=== PATIENT | male | born 1970 | race African-American/Black ===

== ENCOUNTER 2020-07-28 11:31 | Emergency (ER) | payer OTHER ==
--- NOTE | 2020-07-28 12:12 | ER Document Report ---
ED Medical Screen (RME) - General Stated Complaint: CHEST PAIN Time Seen by Provider: 07/28/20 12:06 Primary Care Provider: MELVI PATEL PA [Primary Care Provider] - Follow up as needed Notes: HPI: 50-year-old male presenting with 1 month of a soreness in the left chest with no shortness of breath. States the soreness became more intense today so he called his primary care provider who told him to come to the emergency department to have it evaluated. Reports no primary history of heart issues or hypertension. PHYSICAL EXAMINATION: Lung sounds are clear to auscultation regular rate and rhythm on EKG I have greeted and performed a rapid initial assessment of this patient. A comprehensive ED assessment and evaluation of the patient, analysis of test results and completion of medical decision making process will be conducted by an additional ED providers. Please note that clinical decision making for this patient was made during the 2019 pandemic of novel coronavirus which caused a significant strain on the healthcare system including at this particular facility. Criteria for admission discharge and level of care decisions as well as treatment decisions have necessarily changed Physical Exam - Vital signs Vitals: Temp Pulse Resp BP Pulse Ox 98.2 F 62 16 156/107 H 99 07/28/20 11:44 07/28/20 11:44 07/28/20 11:44 07/28/20 11:44 07/28/20 11:44 Course - Vital Signs Vital signs: Temp Pulse Resp BP Pulse Ox 98.2 F 62 16 156/107 H 99 07/28/20 11:44 07/28/20 11:44 07/28/20 11:44 07/28/20 11:44 07/28/20 11:44 Doctor's Discharge - Discharge Referrals: MELVI PATEL PA [Primary Care Provider] - Follow up as needed
--- NOTE | 2020-07-28 12:36 | RADIOLOGY REPORT (SQ) ---
EXAM DESCRIPTION: CHEST SINGLE VIEW IMAGES COMPLETED DATE/TIME: 07/28/2020 12:27 pm REASON FOR STUDY: chest pain COMPARISON: 07/21/2010 EXAM PARAMETERS: NUMBER OF VIEWS: One view. TECHNIQUE: Single frontal radiographic view of the chest acquired. RADIATION DOSE: NA LIMITATIONS: None. FINDINGS: LUNGS AND PLEURA: No opacities, masses or pneumothorax. No pleural effusion. MEDIASTINUM AND HILAR STRUCTURES: No masses. Contour normal. HEART AND VASCULAR STRUCTURES: Heart normal in size. Normal vasculature. BONES: No acute findings. HARDWARE: None in the chest. OTHER: No other significant finding. IMPRESSION: NO ACUTE RADIOGRAPHIC FINDING IN THE CHEST. TECHNICAL DOCUMENTATION: JOB ID: [id number] 2010 [email or web address]- All Rights Reserved Reading location - IP/workstation name: [email or web address]
[2020-07-28 12:52] LABS: ABSOLUTE EOSINOPHILS # (AUTO) 0.2 10^3/uL (0.0-0.6); ABSOLUTE MONOCYTES (AUTO) 0.7 10^3/uL (0.1-1.4); ABSOLUTE NEUT (AUTO) 3.3 10^3/uL (1.7-8.2); BASOPHILS % (AUTO) 0.8 % (0-2); EOSINOPHILS % (AUTO) 2.5 % (0-6); HEMATOCRIT 44.6 % (37.9-51.0); HEMOGLOBIN 14.7 g/dL (13.5-17.0); LYMPHOCYTES % (AUTO) 32.5 % (13-45); MEAN CORPUSCULAR HEMOGLOBIN 27.3 pg (27.0-33.4); MEAN CORPUSCULAR HGB CONC 32.9 g/dL (32.0-36.0); MEAN CORPUSCULAR VOLUME 83 fl (80-97); MONOCYTES % (AUTO) 11.1 % (3-13); PLATELET COUNT 227 10^3/uL (150-450); RED BLOOD COUNT 5.37 10^6/uL (4.35-5.55); RED CELL DISTRIBUTION WIDTH 13.9 % (11.5-14.0); SEGMENTED NEUTROPHILS % (AUTO) 53.1 % (42-78); TOTAL CELLS COUNTED % (AUTO) 100 %; WHITE BLOOD COUNT 6.1 10^3/uL (4.0-10.5)
[2020-07-28 13:10] LABS: ALBUMIN 4.1 g/dL (3.5-5.0); ALKALINE PHOSPHATASE 99 U/L (38-126); ASPARTATE AMINO TRANSFERASE 22 U/L (17-59); BILIRUBIN,DIRECT 0.1 mg/dL (0.0-0.4); BILIRUBIN,TOTAL 0.4 mg/dL (0.2-1.3); BLOOD UREA NITROGEN 14 mg/dL (7-20); CALCIUM 9.9 mg/dL (8.4-10.2); GLUCOSE 87 mg/dL (75-110); POTASSIUM 4.7 mmol/L (3.6-5.0); TOTAL PROTEIN 7.5 g/dL (6.3-8.2)
[2020-07-28 13:16] LABS: CARBON DIOXIDE 31 mmol/L (22-30); CHLORIDE 104 mmol/L (98-107)
[2020-07-28 13:19] LABS: ANION GAP 3 (5-19)
--- NOTE | 2020-07-28 14:54 | ER Document Report ---
ED Cardiac - General Chief Complaint: Chest Pain Stated Complaint: CHEST PAIN Time Seen by Provider: 07/28/20 12:06 Primary Care Provider: MELVI PATEL PA [PHYSICIAN INCIDENT RESPONSE MANAGER] - Follow up as needed Mode of Arrival: Ambulatory Information source: Patient - [facility] Notes: Patient presents with chest pain. He states he had this chest pain for several months. He states it occurs almost every day. He states it is a "soreness". Is in the center of his chest. It is worse with movement and better with rest. He denies any associated symptoms. Specifically he denies shortness of breath, nausea, or sweating. He states he is a smoker but has no other known medical problems. He also denies any previous major surgeries. He denies any previous cardiac evaluation. This pain when it does occur last for a few seconds at a time and is mild. - Related Data Allergies/Adverse Reactions: No Known Allergies Allergy (Unverified 07/28/20 14:08) Past Medical History - General Information source: Patient - Social History Smoking Status: Never Smoker Chew tobacco use (# tins/day): No Frequency of alcohol use: None Drug Abuse: None Family History: Reviewed & Not Pertinent Patient has homicidal ideation: No Review of Systems - Review of Systems Constitutional: denies: Chills, Fever Cardiovascular: Chest pain. denies: Palpitations Respiratory: denies: Cough, Short of breath -: Yes All other systems reviewed and negative Physical Exam - Vital signs Vitals: Temp Pulse Resp BP Pulse Ox 98.2 F 62 16 156/107 H 99 07/28/20 11:44 07/28/20 11:44 07/28/20 11:44 07/28/20 11:44 07/28/20 11:44 Interpretation: Hypertensive - General General appearance: Appears well, Alert - HEENT Head: Normocephalic, Atraumatic Eyes: Normal Pupils: PERRL - Respiratory Respiratory status: No respiratory distress Chest status: Nontender Breath sounds: Normal Chest palpation: Normal - Cardiovascular Rhythm: Regular Heart sounds: Normal auscultation Murmur: No - Abdominal Inspection: Normal Distension: No distension Bowel sounds: Normal Tenderness: Nontender Organomegaly: No organomegaly - Back Back: Normal, Nontender - Extremities General upper extremity: Normal inspection, Nontender, Normal color, Normal ROM, Normal temperature General lower extremity: Normal inspection, Nontender, Normal color, Normal ROM, Normal temperature, Normal weight bearing. No: Braulio's sign - Neurological Neuro grossly intact: Yes Cognition: Normal Orientation: AAOx4 Jesús Coma Scale Eye Opening: Spontaneous [place] Coma Scale Verbal: Oriented [place] Coma Scale Motor: Obeys Commands Jesús Coma Scale Total: 15 Speech: Normal Motor strength normal: LUE, RUE, LLE, RLE Sensory: Normal - Psychological Associated symptoms: Normal affect, Normal mood - Skin Skin Temperature: Warm Skin Moisture: Dry Skin Color: Normal Course - Re-evaluation Re-evalutation: 07/28/20 14:52 Patient presents with very atypical chest pain. Is been going on for several months and occurs almost every day. Is not associate with any activity. He has no associated symptoms. He has a normal EKG. He has unremarkable laboratories. He has had also has an unremarkable exam. He does have an elevated blood pressure for which I will start him on amlodipine. He does have a doctor to follow-up with and states he will call and discuss an outpatient stress test with this doctor. His heart score is 2. - Vital Signs Vital signs: Temp Pulse Resp BP Pulse Ox 98.2 F 62 16 156/107 H 99 07/28/20 11:44 07/28/20 11:44 07/28/20 11:44 07/28/20 11:44 07/28/20 14:14 - Laboratory Results Result Diagrams: 07/28/20 12:32 07/28/20 12:32 Laboratory Results Interpreted: 07/28/20 12:32 Carbon Dioxide 31 H Anion Gap 3 L Critical Laboratory Results Reviewed: No Critical Results - Radiology Results Critical Radiology Results Reviewed: No Critical Results - EKG Interpretation by Ma EKG shows normal: Sinus rhythm Rate: Bradycardia - 58 Rhythm: NSR Strang/QRS: No: Right axis deviation, Left axis deviation Discharge - Discharge Clinical Impression: Uncontrolled hypertension Chest pain Qualifiers: Chest pain type: unspecified Qualified Code(s): R07.9 - Chest pain, unspecified Condition: Stable Disposition: HOME, SELF-CARE Instructions: Aspirin (Cardiac) ([facility]), Chest Pain of Unclear Cause ([facility]) Additional Instructions: Please call your family doctor soon as possible and discuss an outpatient stress test. Prescriptions: Amlodipine Besylate [Norvasc 2.5 mg Tablet] 2.5 mg PO DAILY #30 tablet Referrals: MELVI PATEL PA [PHYSICIAN INCIDENT RESPONSE MANAGER] - Follow up in 3-5 days
[2020-07-28 15:13] VITALS: BP 160/92
--- NOTE | 2020-07-28 18:15 | EKG REPORT ---
SEVERITY:- NORMAL ECG - SINUS RHYTHM : Confirmed by: Mitzy Fernandez MD 28-Jul-2020 18:14:40
== END 2020-07-28 15:00 | disposition home or self-care (01) ==
LOC: ER 11:31
DX: R07.89 Other chest pain (principal); I10 Essential (primary) hypertension
CPT/HCPCS: 36415; 71045; 80053; 84484; 85025; 93005; 93010; 99285